=== PATIENT | female | born 1995 | race Hispanic/Latino ===

== ENCOUNTER 2024-10-22 04:55 | Emergency (ER) | payer BC | END 2024-10-22 05:16 | disposition home or self-care (01) | LOC: CSHERS 04:55 | DX: O20.0 Threatened abortion (principal); Z3A.15 15 weeks gestation of pregnancy | CPT/HCPCS: 99283 ==

== ENCOUNTER 2025-04-07 12:31 | Inpatient (IN) | payer BC ==
[2025-04-07 13:35] VITALS: BMI 36.8
[2025-04-07] MEDS ORDERED: hydrALAZINE 20 MG/ML VIAL SLOW IVP PRN ×3 (13:35→23:24)
[2025-04-07 13:58] LABS: Fetal Membranes Rupture No Membranes Rupture (No Rupture)
[2025-04-07] MEDS ORDERED: Tranexamic Acid 1,000 MG/10 ML VIAL IVP PRN (16:32)
[2025-04-07] MEDS ORDERED: Acetaminophen 500 MG TAB PO PRN (16:32)
[2025-04-07] MEDS ORDERED: Ondansetron PF 4 MG/2 ML Vial IVP PRN ×4 (16:32→23:24)
[2025-04-07] MEDS ORDERED: Famotidine/PF 20 mg/2ml Vial SLOW IVP PRN (16:32)
[2025-04-07] MEDS ORDERED: Carboprost 250 MCG/ML AMP IM PRN (16:32)
[2025-04-07] MEDS ORDERED: Methylergonovine 0.2 MG/ML VIAL IM PRN (16:32)
[2025-04-07] MEDS ORDERED: Bicitra 30 ML UDCUP PO PRN (16:32)
[2025-04-07] MEDS ORDERED: Diphenoxylate HCl/Atropine Tablet PO PRN (16:32)
[2025-04-07] MEDS ORDERED: Oxytocin 30 units/NS 500 ML 500 ML IV SCH (16:45)
[2025-04-07 17:04] LABS: Hematocrit 37.0 % (34.9-44.5); Hemoglobin 12.4 g/dL (12.0-15.5); Mean Corpuscular Hemoglobin 30.0 pg (27.0-33.0); Mean Corpuscular Volume 89.4 fL (81.6-98.3); Platelet Count 221 10x3/uL (150-450); Red Blood Cell (RBC) Count 4.14 10x6/uL (3.90-5.03); White Blood Cell (WBC) Count 8.46 10x3/uL (3.5-10.5)
[2025-04-07 17:47] LABS: Hep B Surf Ag - L&D Non-Reactive S/CO (NonReactive)
[2025-04-07 17:48] LABS: Syphilis Antibody Index 0.08 S/CO (<1.00 Non-Reactive)
[2025-04-07] MEDS ORDERED: Meperidine HCl/PF 25 MG (1 mL) VIAL SLOW IVP PRN (18:29)
[2025-04-07] MEDS ORDERED: diphenhydrAMINE 50 MG/ML VIAL IVP PRN (18:29)
[2025-04-07] MEDS ORDERED: Ketorolac Tromethamine 30 MG (1 mL) VIAL IVP SCH (18:30)
[2025-04-07] MEDS ORDERED: Communication Order-Pharmacy FS SCH (18:30)
[2025-04-07] MEDS: Dexamethasone 10 MG/ML VIAL ONE (23:12)
[2025-04-07] MEDS: Oxytocin 10 UNITS/ML VIAL ONE (23:12)
[2025-04-07] MEDS: Ondansetron PF 4 MG/2 ML Vial ONE (23:12)
[2025-04-07] MEDS: Ketorolac Tromethamine 30 MG (1 mL) VIAL ONE (23:13)
[2025-04-07] MEDS ORDERED: Boostrix 0.5 ML (Tdap) VIAL (>/=7 yrs of age) IM ONE (23:24)
[2025-04-07] MEDS ORDERED: Bisacodyl 10 MG SUPP PR PRN (23:24)
[2025-04-07] MEDS ORDERED: Lanolin Ointment 7 GM TUBE TOP PRN (23:24)
[2025-04-08] MEDS: Ferrous Sulfate 325 MG TAB PO SCH ×2 (00:58→17:46)
[2025-04-08] MEDS: Ketorolac Tromethamine 30 MG (1 mL) VIAL IVP PRN (01:27)
[2025-04-08 05:50] LABS: Hematocrit 31.1 % (34.9-44.5); Hemoglobin 10.2 g/dL (12.0-15.5); Mean Corpuscular Hemoglobin 29.5 pg (27.0-33.0); Mean Corpuscular Volume 89.9 fL (81.6-98.3); Platelet Count 202 10x3/uL (150-450); Red Blood Cell (RBC) Count 3.46 10x6/uL (3.90-5.03); White Blood Cell (WBC) Count 13.99 10x3/uL (3.5-10.5)
[2025-04-08] MEDS: HYDROcodone/Acetaminophen 5/325 mg Tablet PO PRN ×2 (08:38→18:13)
[2025-04-08] MEDS: Simethicone Chewable 80 MG TAB PO PRN (08:40)
[2025-04-08] MEDS: Ibuprofen 800 MG TAB PO SCH (21:34)
[2025-04-09] MEDS: diphenhydrAMINE 25 MG CAP PO PRN (11:04)
[2025-04-09 11:56] VITALS: BP 133/81; TEMP 98
== END 2025-04-09 13:00 | disposition home or self-care (01) | DRG 788 ==
LOC: CSHLD/OP 12:31 → CSHLD 17:06 → CSHPP 22:10
PROVIDERS: ADMIT Obstetrics & Gynecology; ATTEND Obstetrics & Gynecology
PROC: 10D00Z1 Extraction of Products of Conception, Low, Open Approach (ICD-10-PCS; principal; 2025-04-07)
PROC: 3E03329 Introduction of Other Anti-infective into Peripheral Vein, Percutaneous Approach (ICD-10-PCS; 2025-04-07)
DX: O76 Abnormality in fetal heart rate and rhythm complicating labor and delivery (principal); O42.02 Full-term premature rupture of membranes, onset of labor within 24 hours of rupture; O34.211 Maternal care for low transverse scar from previous cesarean delivery; Z3A.39 39 weeks gestation of pregnancy; Z37.0 Single live birth; K13.0 Diseases of lips; O99.893 Other specified diseases and conditions complicating puerperium
CPT/HCPCS: 36415; 51702; 76819; 84112; 85027; 86780; 86850; 86900; 86901; 87340; 99285; J1100; J1885; J2274; J2405; J2550; J2590; J3010